=== PATIENT | male | born 1950 ===

== ENCOUNTER 2022-03-21 10:58 | Outpatient (REF) | payer MEDICARE, OTHER, SELFPAY | END 2022-03-21 10:59 | disposition home or self-care (01) | LOC: LBN 10:58 | PROVIDERS: Visit Provider Nurse Practitioner Family | DX: S91.001A Unspecified open wound, right ankle, initial encounter (principal); L08.89 Other specified local infections of the skin and subcutaneous tissue | CPT/HCPCS: 87070; 87205 ==